=== PATIENT | female | born 1980 | race Caucasian/White ===

== ENCOUNTER 2018-06-12 18:21 | Emergency (ER) | payer BC ==
[~2018-06-12] VITALS: Ht 152.4 cm; Wt 66.7 kg
--- NOTE | 2018-06-12 18:25 | NUR ---
PT AMBULATED TO ER BED 06
[2018-06-12 18:29] VITALS: BP 134/83
--- NOTE | 2018-06-12 18:36 | NUR ---
PT C/O HEADACHE AND WANTING A R/O CDIFF PER HER [employer] TELLING HER SEVERAL PEOPLE ARE POSITIVE. NO OTHER COMPLAINTS. 01/24 PAIN. DENIES CP/SOB, NVD HX----NONE
--- NOTE | 2018-06-12 19:14 | NUR ---
REPORT RECEIVED FROM MICHELLE SÁNCHEZ
[2018-06-12] MEDS ORDERED: IBUPROFEN 400 MG TAB PO ONE (19:15)
[2018-06-12 19:20] VITALS: BP 134/83
== END 2018-06-12 19:20 | disposition home or self-care (01) ==
LOC: MED 18:21
DX: G43.909 Migraine, unspecified, not intractable, without status migrainosus (principal)
CPT/HCPCS: 99282